=== PATIENT | female | born 1935 | race Caucasian/White ===

== ENCOUNTER 2018-12-23 13:03 | Inpatient (IN) ==
[2018-12-23] MEDS ORDERED: Chloraseptic Spray 177 ML BOTTLE MM PRN (18:34)
[2018-12-23] MEDS: *HR* HYDROcodone/Acet 5/325 mg TABLET PO PRN (22:36)
[2018-12-23] MEDS: Ipratropium/Albuterol Neb 3 ML IH SCH (22:37)
[2018-12-24] MEDS: Cefepime HCl 2,000 MG in Water for inj. (sterile) 20 ML IVP SCH ×2 (04:34→16:42)
[2018-12-24] MEDS: *HR* Enoxaparin 40 MG/0.4 ML SYRINGE SQ SCH (04:35)
[2018-12-24] MEDS: Ipratropium/Albuterol Neb 3 ML IH SCH ×4 (04:35→22:20)
[2018-12-24 05:17] LABS: Eosinophils % 0.3 %; Hematocrit 33.1 % (35.3-44.9); Immature Granulocytes % 0.5 % (0-4); Lymphocytes # 0.7 K/mcL (0.6-4.6); Lymphocytes % 6.8 %; Mean Corpuscular HGB Conc 30.2 g/dL (31.6-35.5); Mean Corpuscular Hemoglobin 25.1 pg (28.0-33.3); Mean Platelet Volume 10.7 fL (9.4-12.4); Monocytes # 0.8 K/mcL (0.0-1.3); Monocytes % 8.6 %; Platelet Count 263 K/mcL (140-400); Red Blood Count 3.99 M/mcL (3.82-4.97); Red Cell Distribution Width 17.2 % (11.5-14.5); Segmented Neutrophils % 83.8 %; White Blood Count 9.6 K/mcL (4.3-11.1)
[2018-12-24] MEDS: *HR* HYDROcodone/Acet 5/325 mg TABLET PO PRN ×3 (05:40→18:33)
[2018-12-24 05:43] LABS: BUN/Creatinine Ratio 25 (6-26); Blood Urea Nitrogen 20 mg/dL (8-23); Calcium 7.5 mg/dL (8.6-10.3); Carbon Dioxide 41 mEq/L (23-29); Chloride 94 mEq/L (98-107); Glucose 110 mg/dL (70-105); Osmolality,Calculated 291 (280-300); Potassium 3.2 mEq/L (3.5-5.1); Sodium 139 mEq/L (136-145); eGFR For African Americans > 60 (> 60); eGFR For Non-African Americans > 60 (> 60)
[2018-12-24] MEDS ORDERED: Vancomycin 750 MG VIAL IVPB SCH (09:00)
[2018-12-24] MEDS: Furosemide 20 MG TABLET PO SCH (09:10)
[2018-12-24] MEDS: Cyanocobalamin (B-12) 1,000 MCG TABLET PO SCH (09:10)
[2018-12-24] MEDS: Cholecalciferol (D-3) 1,000 UNIT (25MCG) TABLET PO SCH (09:11)
[2018-12-24] MEDS: predniSONE 10 MG TABLET PO SCH (09:11)
--- NOTE | 2018-12-24 13:15 | Internal Med History&Physical ---
Date of Encounter: 12/24/18 Time of Encounter: 13:13 Assessment and Plan (1) Ileitis, terminal Current visit: Yes Status: Acute She has an intramural abscess. surgical intervention was not warranted she was followed by surgery. She is supposed to remain on the IV antibiotics. We will continue the cefepime and vancomycin Qualifiers: Digestive disease complication type: with abscess Qualified Code(s): K50.014 - Crohn's disease of small intestine with abscess (2) History of vertebral compression fracture Current visit: Yes Status: Acute She is on hydrocodone from home this is a chronic medication for her will not make any changes to that unless something changes. (3) Vitamin B12 deficiency Current visit: Yes Status: Acute Will continue her home B12 (4) Vitamin D deficiency Current visit: Yes Status: Acute Will continue her home vitamin D (5) COPD (chronic obstructive pulmonary disease) Current visit: No Status: Acute She was retaining CO2 at [place]. They did try her on BiPAP she did not tolerate it. She refuses to wear. We will continue nebs and oxygen as needed. Qualifiers: COPD type: unspecified COPD Qualified Code(s): J44.9 - Chronic obstructive pulmonary disease, unspecified (6) Crohns disease Current visit: Yes Status: Chronic Qualifiers: Gastrointestinal tract location: small intestine Digestive disease complication type: with abscess Qualified Code(s): K50.014 - Crohn's disease of small intestine with abscess (7) DVT prophylaxis Current visit: Yes Status: Acute Lovenox (8) Small bowel obstruction Current visit: Yes Status: Acute She has small bowel obstruction on the CT that appears to resolved. (9) Physical deconditioning Current visit: Yes Status: Acute She is here for PT OT RT. (10) DNR (do not resuscitate) Current visit: Yes Status: Acute Discussed CODE STATUS she states she does not want intubation she does not want CPR. States that she is 83 years old she is alert and oriented and I believe capable of making this decision Internal Medicine - H&P: HPI Chief complaint: Here for rehabilitation Admitted From: Hospital to Hospital Transfer History of present illness: Ms. Cantor is a 83 year old female Who came from the main campus with ileitis small bowel obstruction intramural t erminal ileum abscess, history of Crohn's disease, COPD with CO2 retention. She had a lot of physical deconditioning with this abscess and bowel obstruction she is here for repeat have and IV antibiotics. She had a PICC line placed at the main campus she was sent here on vancomycin and cefepime for that abscess. 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 She is pretty independent. At the [facility] she self surgery she did not need surgical intervention. Her small bowel obstruction resolved resolved with bowel rest. She states she is feeling better. She does not have any abdominal pain she ate an omelette sausage and months of breakfast including hot chocolate but today it did stay down she did not have any pain with that she did have loose stool this morning she says loose stool is not uncommon for her she denies melena or hematochezia she denies emesis or nausea. She got up got to the nurses station it did make her short of breath she was tired after she did it. Her oxygen saturation did get a little low when she ambulated. She s tates she does not tolerate the BiPAP she said it was like a tornado blowing in her face she cannot wear she will not tolerate it. She was never on oxygen until she came in for this admission. She does not feel dizzy. She states that when she was at [place] they changed her pain medication and she was hallucinating she was seeing people bowl making pizzas in the street her television was on the floor. She states that has resolved since they switched her back to her usual hydrocodone. She is awake and alert and oriented 3. She knows who I am more I used to live she is pretty with it now. Past Med Surg Social Fam HX - Past Medical History Source: patient Medical history: arthritis, COPD, osteoporosis Additional medical history: Crohns, vertebral compression fractures, vitamin B12 deficiency, vitamin D deficiency, osteoporosis history of abnormal Pap smear hiatal hernia Psychiatric history: no psych history - Past Surgical History Surgical History: appendectomy (1989), CECILIA/BSO (For cervical cancer 1994), other (Tonsils colonoscopy EGD in September [address] Staley) - Social History Smoking Status: Former smoker Smokeless Tobacco Status: No Alcohol use: none Drug use: none - Family History Mother Living Status: Hx Family Cardiac Disorders: Yes (Hypertension) Hx Family Endocrine Disorder: Yes (Diabetes) Hx Family Neurologic Disorders: Yes (CVA) Father Hx Family Cardiac Disorders: Yes (Heart disease) Hx Family Endocrine Disorder: Yes (Diabetes) Internal Medicine - H&P: Meds Albuterol Sulfate [Proventil Inhaler] 2 puff IH Q4HR PRN 01/05/15 [History] Cholecalciferol (Vitamin D3) [Vitamin D3] 2,000 unit PO DAILY 01/05/15 [History] Cyanocobalamin (Vitamin B-12) [Vitamin B12] 1,000 mcg PO DAILY 12/16/18 [History] Furosemide [Lasix] 20 mg PO DAILY 12/16/18 [History] Omeprazole [PriLOSEC] 40 mg PO DAILY 12/16/18 [History] Cefepime HCl [Maxipime] 2,000 mg IVPB Q12HR 28 Days #56 vial 12/23/18 [Rx] Chloraseptic Bruce [Chloraseptic] 2 spray MM QID PRN bottle 12/23/18 [Rx] HYDROcodone/Acet 5/325 mg [Conception 5-325 mg] 1 tab PO Q6H PRN 3 Days #12 tab 12/23/18 [Rx] Ipratropium/Albuterol Neb [Duoneb] 3 ml IH [id number] inhsol 12/23/18 [Rx] Vancomycin [Vancocin] 750 mg IV DAILY #28 vial 12/23/18 [Rx] predniSONE [Prednisone] 10 mg PO DAILY 20 Days #50 tab 12/23/18 [Rx] Allergy/AdvReac Type Severity Reaction Status Date / Time latex Allergy Rash Verified 12/15/18 16:50 rofecoxib [From Vioxx] Allergy See Verified 12/15/18 16:50 Comments All Systems PM: A 10-system review of systems was performed and is negative for pertinent findings except as documented above in the HPI. - Constitutional Constitutional: fatigue, weakness (Generalized not focal), no fever(s), no night sweats - EENT Eyes: no change in vision Nose, mouth and throat: no nasal congestion, no nasal discharge - Cardiovascular Cardiovascular ROS IM: dyspnea, edema (She has had that has gotten a lot better), no chest pain, no orthopnea, no palpitations, no syncope - Respiratory Respiratory: no cough, no hemoptysis, no wheezing - Gastrointestinal Gastrointestinal: loose stools (Chronic), no abdominal pain, no constipation, no cramping, no dysphagia, no melena, no nausea, no vomiting - Genitourinary Genitourinary: no dysuria, no hematuria, no urinary incontinence - Musculoskeletal Musculoskeletal ROS IM: arthralgias (Chronic of her back) - Integumentary Integumentary IM: no pruritus, no rash, no jaundice - Neurological Neurological ROS: no dizziness, no loss of vision, no memory loss, no numbness - Constitutional Vitals: Temp Pulse Resp BP Pulse Ox 97.9 F 91 15 158/68 97 12/24/18 11:56 12/24/18 11:56 12/24/18 11:56 12/24/18 11:56 12/24/18 11:56 General appearance: Present: A&O X 3, no acute distress, answers questions appropriately - Head Head exam: Present: atraumatic, normocephalic - Neck Neck exam general surgery: Present: normal inspection, supple, trachea midline. Absent: lymphadenopathy - Respiratory Respiratory exam: Present: CTAB - Cardiovascular Cardiovascular exam: Present: +S1, +S2. Absent: systolic murmur - GI/Abdominal GI/Abdominal exam: Present: normal bowel sounds, soft, no peritoneal signs. Absent: distended, guarding, mass, tenderness - Extremities Exam Extremities exam: Present: normal capillary refill, pedal edema (Trace of ankle she states this is improved a lot) - Skin Skin exam: Present: dry, warm. Absent: rash Internal Med - H&P Results - Labs CBC & Chem 7: 12/24/18 04:44 12/24/18 04:44 Labs: Short CBC 12/24/18 Range/Units 04:44 WBC 9.6 D (4.3-11.1) K/mcL Hgb 10.0 L (11.5-15.4) g/dL Hct 33.1 L (35.3-44.9) % Plt Count 263 (140-400) K/mcL Neutrophils # 8.0 (1.6-8.9) K/mcL BMP 12/24/18 04:44 Sodium 139 Potassium 3.2 L Chloride 94 L Carbon Dioxide 41 H* BUN 20 Creatinine 0.80 Glucose 110 H Calcium 7.5 L
[2018-12-25] MEDS: *HR* HYDROcodone/Acet 5/325 mg TABLET PO PRN ×4 (00:45→19:06)
[2018-12-25] MEDS: Ipratropium/Albuterol Neb 3 ML IH SCH ×4 (04:17→22:07)
[2018-12-25] MEDS: Cefepime HCl 2,000 MG in Water for inj. (sterile) 20 ML IVP SCH (05:35)
[2018-12-25] MEDS: *HR* Enoxaparin 40 MG/0.4 ML SYRINGE SQ SCH (05:35)
[2018-12-25 05:59] LABS: Basophils % 0.1 %; Eosinophils # 0.3 K/mcL (0.0-0.6); Eosinophils % 3.3 %; Hematocrit 36.6 % (35.3-44.9); Hemoglobin 10.7 g/dL (11.5-15.4); Immature Granulocytes % 0.6 % (0-4); Lymphocytes # 1.3 K/mcL (0.6-4.6); Lymphocytes % 12.4 %; Mean Corpuscular HGB Conc 29.2 g/dL (31.6-35.5); Mean Corpuscular Hemoglobin 24.4 pg (28.0-33.3); Mean Corpuscular Volume 83.6 fL (83.0-100.0); Mean Platelet Volume 10.2 fL (9.4-12.4); Monocytes # 0.9 K/mcL (0.0-1.3); Monocytes % 8.7 %; Neutrophils # 7.6 K/mcL (1.6-8.9); Platelet Count 291 K/mcL (140-400); Red Blood Count 4.38 M/mcL (3.82-4.97); Red Cell Distribution Width 17.7 % (11.5-14.5); Segmented Neutrophils % 74.9 %; White Blood Count 10.1 K/mcL (4.3-11.1)
[2018-12-25 06:15] LABS: BUN/Creatinine Ratio 29 (6-26); Blood Urea Nitrogen 23 mg/dL (8-23); Calcium 7.5 mg/dL (8.6-10.3); Carbon Dioxide 36 mEq/L (23-29); Chloride 96 mEq/L (98-107); Glucose 103 mg/dL (70-105); Osmolality,Calculated 290 (280-300); Potassium 3.5 mEq/L (3.5-5.1); Sodium 138 mEq/L (136-145); eGFR For African Americans > 60 (> 60); eGFR For Non-African Americans > 60 (> 60)
[2018-12-25] MEDS: Cholecalciferol (D-3) 1,000 UNIT (25MCG) TABLET PO SCH (09:08)
[2018-12-25] MEDS: Cyanocobalamin (B-12) 1,000 MCG TABLET PO SCH (09:09)
[2018-12-25] MEDS: Furosemide 20 MG TABLET PO SCH (09:09)
[2018-12-25] MEDS: predniSONE 10 MG TABLET PO SCH (09:09)
--- NOTE | 2018-12-25 10:02 | Internal Med Progress Note ---
Date of Encounter: 12/25/18 Time of Encounter: 10:00 - Assessment and plan (1) Physical deconditioning Current Visit: Yes Status: Acute Assessment and plan: She is here for PT OT to improve physical strength to get her back home (2) Ileitis, terminal Current Visit: Yes Status: Acute Assessment and plan: She is here for IV cefepime and vancomycin. She is not having any abdominal pain. She has a PICC line for her antibiotics. Qualifiers: Digestive disease complication type: with abscess Qualified Code(s): K50.014 - Crohn's disease of small intestine with abscess (3) History of vertebral compression fracture Current Visit: Yes Status: Acute Assessment and plan: Continue her home dose of hydrocodone as needed (4) Vitamin B12 deficiency Current Visit: Yes Status: Acute Assessment and plan: Continue her home B12 (5) Vitamin D deficiency Current Visit: Yes Status: Acute Assessment and plan: Continue her home dose of medication (6) COPD (chronic obstructive pulmonary disease) Current Visit: No Status: Acute Assessment and plan: She did not tolerate BiPAP she is on oxygen she was on oxygen prior she is doing okay from respiratory standpoint Qualifiers: COPD type: unspecified COPD Qualified Code(s): J44.9 - Chronic obstructive pulmonary disease, unspecified (7) Crohns disease Current Visit: Yes Status: Chronic Qualifiers: Gastrointestinal tract location: small intestine Digestive disease complication type: with abscess Qualified Code(s): K50.014 - Crohn's disease of small intestine with abscess (8) DVT prophylaxis Current Visit: Yes Status: Acute Assessment and plan: Lovenox (9) Small bowel obstruction Current Visit: Yes Status: Acute Assessment and plan: That improved with bowel rest she did not require surgical intervention she does have an NG tube and bowel rest. She is not currently having any symptoms (10) DNR (do not resuscitate) Current Visit: Yes Status: Acute - Subjective Interval history: feels better she denies any abdominal pain she is eating okay she is off oxygen right now and they are checking her oxygen saturation she denies coughing wheezing shortness of breath palpitations chest pain dysuria. She does have loose stools that is nothing new for her no melena no hematochezia - Constitutional Vitals: Temp Pulse Resp BP Pulse Ox 97.4 F L 103 16 131/67 95 12/25/18 07:53 12/25/18 07:53 12/25/18 07:53 12/25/18 07:53 12/25/18 07:53 General appearance: Present: A&O X 3, no acute distress, answers questions appropriately - Head Head exam: Present: atraumatic, normocephalic - Neck Neck exam general surgery: Present: normal inspection, supple, trachea midline - Expanded Neck Exam Neck exam: Absent: carotid bruit - Respiratory Respiratory exam: Present: decreased breath sounds, prolonged expiratory phase, wheezes (occ) - Cardiovascular Cardiovascular exam: Present: RRR, +S1, +S2. Absent: systolic murmur - GI/Abdominal GI/Abdominal exam: Present: normal bowel sounds, no peritoneal signs. Absent: distended, guarding, soft, tenderness - Extremities Exam Extremities exam: Present: normal capillary refill, pedal edema (trace) - Skin Skin exam: Present: dry, rash, warm Internal Medicine: Result - Labs CBC & Chem 7: 12/25/18 05:37 12/25/18 05:37 Labs: Short CBC 12/25/18 Range/Units 05:37 WBC 10.1 (4.3-11.1) K/mcL Hgb 10.7 L (11.5-15.4) g/dL Hct 36.6 (35.3-44.9) % Plt Count 291 (140-400) K/mcL Neutrophils # 7.6 (1.6-8.9) K/mcL BMP 12/25/18 05:37 Sodium 138 Potassium 3.5 Chloride 96 L Carbon Dioxide 36 H BUN 23 Creatinine 0.79 Glucose 103 Calcium 7.5 L Consult Discharge Plan - Plan Referrals: Tay Argueta MD [Primary Care Provider] -
[2018-12-26] MEDS: *HR* HYDROcodone/Acet 5/325 mg TABLET PO PRN ×4 (01:38→21:09)
[2018-12-26] MEDS: Cefepime HCl 2,000 MG in Water for inj. (sterile) 20 ML IVP SCH (05:45)
[2018-12-26] MEDS: *HR* Enoxaparin 40 MG/0.4 ML SYRINGE SQ SCH (05:46)
[2018-12-26] MEDS: Ipratropium/Albuterol Neb 3 ML IH SCH ×4 (06:00→22:47)
[2018-12-26] MEDS ORDERED: Aminoglycoside Consult 1 EACH MC ONE (07:17)
[2018-12-26] MEDS: Cyanocobalamin (B-12) 1,000 MCG TABLET PO SCH (08:01)
[2018-12-26] MEDS: Furosemide 20 MG TABLET PO SCH (08:02)
[2018-12-26] MEDS: Cholecalciferol (D-3) 1,000 UNIT (25MCG) TABLET PO SCH (08:02)
[2018-12-26] MEDS: predniSONE 10 MG TABLET PO SCH (08:02)
--- NOTE | 2018-12-26 10:32 | Internal Med Progress Note ---
Date of Encounter: 12/26/18 Time of Encounter: 10:30 - Assessment and plan (1) Physical deconditioning Current Visit: Yes Status: Acute Assessment and plan: Patient complains of weakness but is doing well in OT and PT. Continued with OT and PT to improved physical strength. (2) Ileitis, terminal Current Visit: Yes Status: Acute Assessment and plan: Patient is doing well on antibiotic treatment. No abdomen pain. Continue with IV vancomyin and cefepime. Qualifiers: Digestive disease complication type: with abscess Qualified Code(s): K50.014 - Crohn's disease of small intestine with abscess (3) COPD (chronic obstructive pulmonary disease) Current Visit: No Status: Acute Assessment and plan: Continued oxygen supplementation. Qualifiers: COPD type: unspecified COPD Qualified Code(s): J44.9 - Chronic obstructive pulmonary disease, unspecified (4) History of vertebral compression fracture Current Visit: Yes Status: Acute Assessment and plan: Continue with home dose of hydrocodone. (5) Vitamin B12 deficiency Current Visit: Yes Status: Acute Assessment and plan: Continued with home dose of Vitamin B12 supplement. (6) Vitamin D deficiency Current Visit: Yes Status: Acute Assessment and plan: Continued home dose of vitamin D supplement. (7) DVT prophylaxis Current Visit: Yes Status: Acute Assessment and plan: Continued on lovenox for DVT prophylaxis. (8) Crohns disease Current Visit: Yes Status: Chronic Qualifiers: Gastrointestinal tract location: small intestine Digestive disease complication type: with abscess Qualified Code(s): K50.014 - Crohn's disease of small intestine with abscess (9) Small bowel obstruction Current Visit: Yes Status: Acute Assessment and plan: Patient improved with bowel rest. Eating well with not abdomen complains. (10) DNR (do not resuscitate) Current Visit: Yes Status: Acute - Subjective Interval history: Patient states she is feeling better and eating well. Denies any abdomen pain, coughing, wheezing, palpations, chest pain or shortness of breath. She admits to weakness and loose stool. Loose stool is normal for her due to Crohns. Patient denies hematochezia or melena. - Constitutional Vitals: Temp Pulse Resp BP Pulse Ox 97.7 F 97 14 143/72 93 12/26/18 07:00 12/26/18 07:00 12/26/18 07:00 12/26/18 07:00 12/26/18 07:00 General appearance: Present: A&O X 3, no acute distress, answers questions appropriately - Head Head exam: Present: atraumatic - Respiratory Respiratory exam: Present: accessory muscle use, decreased breath sounds - Cardiovascular Cardiovascular exam: Present: RRR, +S1, +S2 - GI/Abdominal GI/Abdominal exam: Present: normal bowel sounds. Absent: guarding, tenderness - Extremities Exam Extremities exam: Present: pedal edema Internal Medicine: Result - Labs CBC & Chem 7: 12/25/18 05:37 12/25/18 05:37 Consult Discharge Plan - Plan Referrals: Tay Argueta MD [Primary Care Provider] -
[2018-12-26] MEDS: MetroNIDAZOLE 500 MG/100 ML 500 MG/100 ML BAG IVPB SCH (18:07)
[2018-12-27] MEDS: MetroNIDAZOLE 500 MG/100 ML 500 MG/100 ML BAG IVPB SCH ×3 (02:39→17:56)
[2018-12-27] MEDS: *HR* HYDROcodone/Acet 5/325 mg TABLET PO PRN ×4 (03:57→22:32)
[2018-12-27] MEDS: Ipratropium/Albuterol Neb 3 ML IH SCH ×4 (05:10→21:31)
[2018-12-27] MEDS: Cefepime HCl 2,000 MG in Water for inj. (sterile) 20 ML IVP SCH (06:33)
[2018-12-27] MEDS: *HR* Enoxaparin 40 MG/0.4 ML SYRINGE SQ SCH (06:33)
--- NOTE | 2018-12-27 07:04 | Internal Med Progress Note ---
Date of Encounter: 12/27/18 Time of Encounter: 07:04 - Assessment and plan (1) Intestinal abscess Current Visit: Yes Status: Acute Assessment and plan: Clinically patient is doing well from her terminal ileum abscess. No fever, no abdominal pain. Eating well. Bowels are moving as her usual loose stools. No leukocytosis. Adjustment of antibiotics based on pharmacy recommendation and consultation with infectious disease (2) COPD (chronic obstructive pulmonary disease) Current Visit: No Status: Acute Assessment and plan: COPD appears be stable. She does not want awakened in the middle of night for nebulizer treatment. I think we can make it 4 times a day. Has inhaler for when necessary use. Qualifiers: COPD type: unspecified COPD Qualified Code(s): J44.9 - Chronic obstructive pulmonary disease, unspecified (3) Crohns disease Current Visit: Yes Status: Chronic Assessment and plan: Symptoms are stable. Chronic loose stools. No abdominal pain. No bleeding. Qualifiers: Gastrointestinal tract location: small intestine Digestive disease complication type: with abscess Qualified Code(s): K50.014 - Crohn's disease of small intestine with abscess (4) Acute respiratory failure with hypoxia Current Visit: No Status: Acute Assessment and plan: Generally using 1 L per nasal cannula. She does not tolerate BiPAP. She appears at her pulmonary baseline with functionality regarding breathing (5) Physical deconditioning Current Visit: Yes Status: Acute Assessment and plan: Continues with PT and OT for deconditioning after been hospitalized. Doing very well. (6) DVT prophylaxis Current Visit: Yes Status: Acute Assessment and plan: Continues with Lovenox for DVT prophylaxis. - Subjective Interval history: Patient's biggest complaint is that she wants regular [employer] instead of Elinor and she would like to have salt for her meals. She denies any cardiac type chest pain. She gets occasionally short of breath. She recalls being able to walk to and from physical therapy without having to stop. Nurses report she is requiring oxygen to keep her sats were dropping to the 70s and 80s during exertional activity. Her appetite is good. Her bowels are loose but this is typical for her with her history of Crohn's disease. She denies any abdominal pain except for where she gets the Lovenox injections. She is eating well. She states the edema in lower extremities much better this morning compared to last night. - Constitutional Vitals: Temp Pulse Resp BP Pulse Ox 97.9 F 91 12 130/60 95 12/26/18 20:58 12/26/18 20:58 12/27/18 05:12 12/26/18 20:58 12/27/18 05:12 General appearance: Present: A&O X 3, no acute distress, answers questions appro priately - Respiratory Respiratory exam: Present: decreased breath sounds, CTAB - Cardiovascular Cardiovascular exam: Present: RRR, +S1, +S2, systolic murmur (1 to 2/6 systolic murmur. Occasional ectopic beat) - GI/Abdominal GI/Abdominal exam: Present: soft, tenderness (Her only tenderness is at the sites of the Lovenox when she has small bruises). Absent: guarding, rigid - Extremities Exam Additional comments: Mild edema of both feet and ankles, nonpitting. Not impressive Internal Medicine: Result - Labs CBC & Chem 7: 12/25/18 05:37 12/25/18 05:37 Consult Discharge Plan - Plan Referrals: Tay Argueta MD [Primary Care Provider] -
[2018-12-27] MEDS ORDERED: Ipratropium/Albuterol Neb 3 ML IH PRN (08:42)
[2018-12-27] MEDS: Cyanocobalamin (B-12) 1,000 MCG TABLET PO SCH (09:11)
[2018-12-27] MEDS: predniSONE 10 MG TABLET PO SCH (09:11)
[2018-12-27] MEDS: Furosemide 20 MG TABLET PO SCH (09:11)
[2018-12-27] MEDS: Cholecalciferol (D-3) 1,000 UNIT (25MCG) TABLET PO SCH (09:11)
[2018-12-28] MEDS: MetroNIDAZOLE 500 MG/100 ML 500 MG/100 ML BAG IVPB SCH ×4 (00:29→23:26)
[2018-12-28] MEDS: Cefepime HCl 2,000 MG in Water for inj. (sterile) 20 ML IVP SCH ×2 (04:44→17:23)
[2018-12-28] MEDS: *HR* HYDROcodone/Acet 5/325 mg TABLET PO PRN ×4 (04:44→23:57)
[2018-12-28] MEDS: *HR* Enoxaparin 40 MG/0.4 ML SYRINGE SQ SCH (04:45)
[2018-12-28] MEDS: Ipratropium/Albuterol Neb 3 ML IH SCH ×4 (06:08→21:14)
--- NOTE | 2018-12-28 07:19 | Internal Med Progress Note ---
Date of Encounter: 12/28/18 Time of Encounter: 07:17 - Assessment and plan (1) Intestinal abscess Current Visit: Yes Status: Acute Assessment and plan: continues with the antibiotics intravenously. No fever or chills or abdominal pain. (2) COPD (chronic obstructive pulmonary disease) Current Visit: No Status: Acute Assessment and plan: She desats when she is up and around. Able to maintain good saturations with minimal oxygen per nasal cannula. In bed rest her saturations are in the mid 90s. Currently on low-dose prednisone per thermoforming machine operator at [place]. We will plan taper. Qualifiers: COPD type: unspecified COPD Qualified Code(s): J44.9 - Chronic obstructive pulmonary disease, unspecified (3) Crohns disease Current Visit: Yes Status: Chronic Assessment and plan: No abdominal pain. Her chronic loose stools continue Qualifiers: Gastrointestinal tract location: small intestine Digestive disease complication type: with abscess Qualified Code(s): K50.014 - Crohn's disease of small intestine with abscess (4) Acute respiratory failure with hypoxia Current Visit: No Status: Acute Assessment and plan: Patient declines/refuses BiPAP. Does not tolerate it. Her CO2 has been coming down. (5) Physical deconditioning Current Visit: Yes Status: Acute Assessment and plan: Doing well with her therapies. Continue PT and OT. (6) DVT prophylaxis Current Visit: Yes Status: Acute Assessment and plan: Continues with Lovenox. - Subjective Interval history: Patient states that she is feeling well. She denies any cardiac chest pain or palpitations, she denies any significant dyspnea despite her saturations dropping to the low 80s when she goes to and from the bathroom when she is on room air. She denies any abdominal pain. Her appetite is good. Her bowel movements are her typical loose stools chronically. Still has some edema in lower extremities. Only complaint is pain from her Lovenox shots - Constitutional Vitals: Temp Pulse Resp BP Pulse Ox 97.8 F 105 16 118/81 91 12/28/18 06:55 12/28/18 06:55 12/28/18 06:55 12/28/18 06:55 12/28/18 06:55 General appearance: Present: A&O X 3, no acute distress, answers questions appropriately - Respiratory Respiratory exam: Present: decreased breath sounds, CTAB - Cardiovascular Cardiovascular exam: Present: RRR, +S1, +S2 Additional comments: Frequent ectopy is noted. No tachycardia. - GI/Abdominal GI/Abdominal exam: Present: soft, no peritoneal signs. Absent: guarding, hepatomegaly, mass, tenderness - Extremities Exam Extremities exam: Present: pedal edema (Small amount of ankle and pedal edema. No redness or tenderness). Absent: calf tenderness Internal Medicine: Result - Labs CBC & Chem 7: 12/25/18 05:37 12/25/18 05:37 Consult Discharge Plan - Plan Referrals: Tay Argueta MD [Primary Care Provider] -
[2018-12-28] MEDS: Cholecalciferol (D-3) 1,000 UNIT (25MCG) TABLET PO SCH (07:53)
[2018-12-28] MEDS: predniSONE 10 MG TABLET PO SCH (07:53)
[2018-12-28] MEDS: Furosemide 20 MG TABLET PO SCH (07:53)
[2018-12-28] MEDS: Cyanocobalamin (B-12) 1,000 MCG TABLET PO SCH (07:54)
[2018-12-29] MEDS: Ipratropium/Albuterol Neb 3 ML IH SCH ×3 (05:42→16:43)
[2018-12-29] MEDS: *HR* Enoxaparin 40 MG/0.4 ML SYRINGE SQ SCH (05:42)
[2018-12-29] MEDS: Cefepime HCl 2,000 MG in Water for inj. (sterile) 20 ML IVP SCH ×2 (05:42→18:44)
[2018-12-29] MEDS: *HR* HYDROcodone/Acet 5/325 mg TABLET PO PRN ×3 (05:53→18:43)
[2018-12-29] MEDS: Cyanocobalamin (B-12) 1,000 MCG TABLET PO SCH (08:01)
[2018-12-29] MEDS: predniSONE 10 MG TABLET PO SCH (08:02)
[2018-12-29] MEDS: Cholecalciferol (D-3) 1,000 UNIT (25MCG) TABLET PO SCH (08:02)
[2018-12-29] MEDS: MetroNIDAZOLE 500 MG/100 ML 500 MG/100 ML BAG IVPB SCH ×2 (08:02→15:51)
[2018-12-29] MEDS: Furosemide 20 MG TABLET PO SCH (08:02)
--- NOTE | 2018-12-29 17:23 | Internal Med Progress Note ---
Date of Encounter: 12/29/18 Time of Encounter: 17:18 - Assessment and plan (1) Intestinal abscess Current Visit: Yes Status: Acute Assessment and plan: Patient has been treated for nearly 2 weeks with IV antibiotics of various ty pes. I had a conversation via email with Dr. Kendall today. He suggested 2 weeks IV antibiotic followed by 2-4 weeks of oral levofloxacin/Flagyl/Diflucan. He recommended a repeat CT scan of abdomen towards the end of the treatment, possibly at 4 weeks to see if abscess is still there. With no fever, no chills, no leukocytosis now, no abdominal pain, eating well etc. clinically she is doing well. Even though she has not been on the current regimen for 2 weeks, she has had at least double antibiotics for 2 weeks as of tomorrow. I discussed with patient and her nephew that if the lab work and clinical exam is good tomorrow, we will plan discharge and at least 2 weeks of oral antibiotics and then repeat the CT scan. I can arrange close follow-up via the office. (2) COPD (chronic obstructive pulmonary disease) Current Visit: No Status: Acute Assessment and plan: Her pulmonary status is stable. She requires oxygen when she exerts herself. We will make arrangements for home oxygen. Qualifiers: COPD type: unspecified COPD Qualified Code(s): J44.9 - Chronic obstructive pulmonary disease, unspecified (3) Crohns disease Current Visit: Yes Status: Chronic Assessment and plan: Abdomen has been stable. Loose stools a couple of times per day which is chronic. Qualifiers: Gastrointestinal tract location: small intestine Digestive disease complication type: with abscess Qualified Code(s): K50.014 - Crohn's disease of small intestine with abscess (4) Acute respiratory failure with hypoxia Current Visit: No Status: Acute (5) Physical deconditioning Current Visit: Yes Status: Acute Assessment and plan: Physical therapy reports that she is doing well and that she may be ready for discharge tomorrow (6) DVT prophylaxis Current Visit: Yes Status: Acute - Subjective Interval history: Patient thinks that she is doing well. She does admit that her oxygen level does drop to the 80s when she goes to the bathroom. When in bed sometime she can be a room air and her sats are in the mid 90s. She denies a cardiac type chest pain. She does not think her breathing is any different from her baseline. She is eating well. She has had 2 loose bowel movements today which is typical for her. No urinary symptoms. No fevers or chills. No abdominal pain. - Constitutional Vitals: Temp Pulse Resp BP Pulse Ox 97.3 F L 99 18 130/67 95 12/29/18 05:58 12/29/18 08:00 12/29/18 16:44 12/29/18 08:00 12/29/18 16:44 General appearance: Present: A&O X 3, no acute distress, answers questions a ppropriately - Respiratory Respiratory exam: Present: decreased breath sounds, CTAB - Cardiovascular Cardiovascular exam: Present: RRR, +S1, +S2, systolic murmur (2/6 systolic murmur. Occasional ectopic beat, occasionally bigeminy pattern) - GI/Abdominal GI/Abdominal exam: Present: soft, no peritoneal signs. Absent: distended, guarding, mass, rebound, rigid, tenderness - Extremities Exam Additional comments: Mild amount of edema of ankles and feet. No skin breakdown. Internal Medicine: Result - Labs CBC & Chem 7: 12/25/18 05:37 12/25/18 05:37 Consult Discharge Plan - Plan Referrals: Tay Argueta MD [Primary Care Provider] -
[2018-12-30] MEDS: Ipratropium/Albuterol Neb 3 ML IH SCH ×3 (01:35→09:49)
[2018-12-30] MEDS: MetroNIDAZOLE 500 MG/100 ML 500 MG/100 ML BAG IVPB SCH ×2 (01:41→09:24)
[2018-12-30] MEDS: *HR* HYDROcodone/Acet 5/325 mg TABLET PO PRN ×2 (01:53→08:28)
[2018-12-30] MEDS: Cefepime HCl 2,000 MG in Water for inj. (sterile) 20 ML IVP SCH (05:25)
[2018-12-30] MEDS: *HR* Enoxaparin 40 MG/0.4 ML SYRINGE SQ SCH (05:28)
[2018-12-30 05:34] LABS: Basophils % 0.6 %; Eosinophils # 0.4 K/mcL (0.0-0.6); Eosinophils % 5.4 %; Hematocrit 33.2 % (35.3-44.9); Hemoglobin 9.6 g/dL (11.5-15.4); Immature Granulocytes % 1.7 % (0-4); Mean Corpuscular HGB Conc 28.9 g/dL (31.6-35.5); Mean Corpuscular Hemoglobin 24.4 pg (28.0-33.3); Mean Corpuscular Volume 84.5 fL (83.0-100.0); Mean Platelet Volume 9.8 fL (9.4-12.4); Monocytes # 0.9 K/mcL (0.0-1.3); Neutrophils # 4.7 K/mcL (1.6-8.9); Platelet Count 312 K/mcL (140-400); Red Blood Count 3.93 M/mcL (3.82-4.97); Segmented Neutrophils % 65.3 %; White Blood Count 7.2 K/mcL (4.3-11.1)
[2018-12-30 05:47] LABS: Platelet Estimate Normal (Normal)
[2018-12-30 05:54] LABS: BUN/Creatinine Ratio 31 (6-26); Blood Urea Nitrogen 24 mg/dL (8-23); Calcium 7.6 mg/dL (8.6-10.3); Carbon Dioxide 33 mEq/L (23-29); Chloride 103 mEq/L (98-107); Glucose 114 mg/dL (70-105); Osmolality,Calculated 295 (280-300); Potassium 3.4 mEq/L (3.5-5.1); Sodium 140 mEq/L (136-145); eGFR For African Americans > 60 (> 60); eGFR For Non-African Americans > 60 (> 60)
--- NOTE | 2018-12-30 07:33 | Discharge Summary ---
- NOTES TO OUTPATIENT PROVIDER Notes to Outpatient Provider: 1. Patient discharged on Levaquin, metronidazole, Diflucan for 2 weeks and then follow-up CT scan at that time to recheck bowel abscess. 2. Discharged with nebulizer and treatments. 3. Discharged with potassium supplement. 4. Discharged with oxygen use to keep her sats greater than 90% Date of Encounter: 12/30/18 Time of Encounter: 07:17 - Discharge Diagnosis (1) Intestinal abscess Priority: Primary Status: Acute Comments: Patient was transferred to our hospital in a swing bed capacity for ongoing IV antibiotics and for physical therapy for deconditioning. She was at [facility] previously and was treated for an intramural intestinal infection. She came to us on vancomycin and cefepime. After consultation with pharmacy and infectious disease specialist it was changed to cefepime and metronidazole. Her abdomen exam remained soft and nontender and no masses. White blood cell count was normal. She did extremely well with from a GI point of view taking regular diet, stooling at her usual loose stools with Crohn's disease, and no abdominal pain. As recommended by infectious disease to complete 2 weeks of IV advice then switch to oral with Levaquin, metronidazole and Diflucan. We will plan follow-up in the office as well as follow up CT scan at the four-week jumana. She will notify me if develops abdominal pain, fever, chills, vomiting etc. (2) COPD (chronic obstructive pulmonary disease) Priority: Secondary Status: Acute Comments: Patient's chronic COPD and now is found to have hypoxia when she is up and ambulating. Saturations would drop to the mid to low 80s. Basically when out of bed and ambulate and she needed oxygen. Otherwise she advanced nicely with her ADLs. She appears be safe to be sent home. PT and OT feel that she is at maximum benefit in our facility. She will be discharged on oxygen per nasal cannula at 1-2 L per nasal cannula concentrator and portable tank. I will see her in the office in follow-up. Qualifiers: COPD type: unspecified COPD Qualified Code(s): J44.9 - Chronic obstructive pulmonary disease, unspecified (3) Crohns disease Priority: Secondary Status: Chronic Comments: Chronic history of Crohn's disease. Followed by Dr. Staley in [facility]. She had the abscess as above. Her abdomen seems to be back to normal and being discharged with the advice as discussed above. Qualifiers: Gastrointestinal tract location: small intestine Digestive disease complication type: with abscess Qualified Code(s): K50.014 - Crohn's disease of small intestine with abscess (4) Acute respiratory failure with hypoxia Priority: Secondary Status: Acute Comments: As above with acute exacerbation of her hypoxia. Requiring oxygen now (5) Physical deconditioning Priority: Secondary Status: Acute Comments: She advanced nicely with PT and OT and maintain ADLs appropriately well to be able to go home. (6) Hypokalemia Priority: Secondary Status: Acute Comments: Hypokalemia resolved. (7) DVT prophylaxis Priority: Secondary Status: Acute Comments: Patient had Lovenox for DVT prophylaxis. Hospital course: Ms. Cantor is a 83 year old female with known history of Crohn's disease was admitted to [facility] then transferred to us with history of intramural intestinal abscess. See the diagnoses above. Time of discharge she was doing quite well safe for discharge. Discharge discussed with: patient - Time Spent with Patient Total time spent providing and/or coordinating discharge services: - Discharge Medications Prescriptions: New Fluconazole [Diflucan] 400 mg PO DAILY #28 tab Ferrous Sulfate [Iron] 325 mg PO BID #1 tablet Potassium Chloride [K-Tab ER] 10 meq PO DAILY #30 tablet.er levoFLOXacin [Levofloxacin] 500 mg PO DAILY #14 tablet metroNIDAZOLE [Metronidazole] 500 mg PO TID 14 Days #42 tablet HYDROcodone/Acet 5/325 mg [[place] 5-325 mg] 1 tab PO Q6H PRN 30 Days #120 tablet PRN Reason: Pain Continued Omeprazole [PriLOSEC] 40 mg PO DAILY Furosemide [Lasix] 20 mg PO DAILY Cyanocobalamin (Vitamin B-12) [Vitamin B12] 1,000 mcg PO DAILY Cholecalciferol (Vitamin D3) [Vitamin D3] 2,000 unit PO DAILY Albuterol Sulfate [Proventil Inhaler] 2 puff IH Q4HR PRN PRN Reason: Shortness Of Breath Ipratropium/Albuterol Neb [Duoneb] 3 ml IH [id number] #120 inhsol Discontinued Chloraseptic Early [Chloraseptic] 2 spray MM QID PRN bottle PRN Reason: Sore Throat Cefepime HCl [Maxipime] 2,000 mg IVPB Q12HR 28 Days #56 vial predniSONE [Prednisone] 10 mg PO DAILY 20 Days #50 tab Vancomycin [Vancocin] 750 mg IV DAILY #28 vial HYDROcodone/Acet 5/325 mg [[place] 5-325 mg] 1 tab PO Q6H PRN 3 Days #12 tab PRN Reason: Pain Home Medications: Albuterol Sulfate [Proventil Inhaler] 2 puff IH Q4HR PRN 01/05/15 [History] Cholecalciferol (Vitamin D3) [Vitamin D3] 2,000 unit PO DAILY 01/05/15 [History] Cyanocobalamin (Vitamin B-12) [Vitamin B12] 1,000 mcg PO DAILY 12/16/18 [History] Furosemide [Lasix] 20 mg PO DAILY 12/16/18 [History] Omeprazole [PriLOSEC] 40 mg PO DAILY 12/16/18 [History] Ferrous Sulfate [Iron] 325 mg PO BID #1 tablet 12/30/18 [Rx] Fluconazole [Diflucan] 400 mg PO DAILY #28 tab 12/30/18 [Rx] HYDROcodone/Acet 5/325 mg [[place] 5-325 mg] 1 tab PO Q6H PRN 30 Days #120 tablet 12/30/18 [Rx] Ipratropium/Albuterol Neb [Duoneb] 3 ml IH [id number] #120 inhsol 12/30/18 [Rx] Potassium Chloride [K-Tab ER] 10 meq PO DAILY #30 tablet.er 12/30/18 [Rx] levoFLOXacin [Levofloxacin] 500 mg PO DAILY #14 tablet 12/30/18 [Rx] metroNIDAZOLE [Metronidazole] 500 mg PO TID 14 Days #42 tablet 12/30/18 [Rx] Allergies/Adverse Reactions: Allergy/AdvReac Type Severity Reaction Status Date / Time latex Allergy Rash Verified 12/15/18 16:50 rofecoxib [From Vioxx] Allergy See Verified 12/15/18 16:50 Comments Date of admission: 12/23/18 16:58 Primary care physician: Tay Argueta MD Consults: 12/23/18 18:12 Consult to Occupational Therapy [CONS] Routine Comment: Evaluate, develop and implement POC Reason for Consult: eval Does patient have active BEDREST order?: No Is patient medically & hemodynamically stable?: Yes Consult to Physical Therapy [CONS] Routine Comment: Evaluate, develop and implement POC Reason for Consult: eval Does patient have active BEDREST order?: No Is patient medically & hemodynamically stable?: Yes Consult to Recreational Therapy [CONS] Routine Comment: eval Discharging clinician: Tay Argueta Anticipated date of discharge: 12/30/18 - Constitutional Vitals: Temp Pulse Resp BP Pulse Ox 97.7 F 96 16 126/60 97 12/29/18 19:00 12/29/18 19:00 12/29/18 19:00 12/29/18 19:00 12/29/18 19:00 General appearance: Present: A&O X 3, no acute distress, answers questions appropriately - Respiratory Respiratory exam: Present: decreased breath sounds, CTAB - Cardiovascular Cardiovascular exam: Present: RRR, +S1, +S2, systolic murmur (1/6 systolic murmur. Occasional ectopy and occasional bigeminy pattern) - GI/Abdominal GI/Abdominal exam: Present: soft. Absent: tenderness - Extremities Exam Extremities exam: Absent: calf tenderness, cyanotic Additional comments: Mild edema of ankles and feet. No tenderness. No redness. - Patient Status Disposition: Home, Self-Care Functional capacity at discharge: independent ambulation Overall status at discharge: patient is progressing back to baseline - Discharge Instructions Follow Up With: Tay Argueta MD [Primary Care Provider] - 01/04/19 8:15 am Additional Instructions: Remove PICC line dressing tomorrow 12/31/18 @ 2pm. Finish entire course of antibiotics. Attend scheduled followup appointments. Use oxygen as directed. Take medications as prescribed. Discuss flu shot with Dr. Argueta at scheduled appointment. Follow-up appointments: If there is not an appointment listed below, please call your physician and schedule a follow-up appointment. If you have congestive heart failure and your symptoms return, make an appointment with your physician. Medication List: Carry an up to date list of medications you are taking at all time. We have given you an updated medication list including any new medications that you have been prescribed. Please provide that list to your primary provider Symptoms: If your condition changes or you experience any of the following symptoms, notify your physician immediately: Unusual or worsening pain, fever, persistent nausea and vomiting, bleeding, increase in swelling (especially in your legs), sudden weight gain, extreme dizziness, chest pain, increased drainage or redness from a wound or incision. Go to the emergency department if you experience a problem with breathing. Weights: If you have a history of swelling or shortness of breath, weigh yourself daily and notify your physician if you have a weight gain of two or more pounds in one day or 5 or more pounds in a week. If you experience any of the warning signs for stroke: Sudden numbness or weakness of the face, arm or leg; especially on one side of the body, sudden confusion, trouble speaking or understanding, sudden trouble seeing in one or both eyes, sudden trouble walking, dizziness, loss of balance or coordination, sudden sever headache with no cause; Call 911 or go to the emergency room. Stroke is a medical emergency. Some risk factors for stroke: Age, cigarette smoking, diabetes, excessive alcohol consumption, family history, high blood pressure, overweight, physical inactivity, prior stroke, heart attack, diagnosis of carotid artery stenosis or other artery disease. If you smoke, STOP: Smoking or tobacco use significantly increases your risk of heart and lung disease. Your chance of disease greatly increases if you continue to smoke. For more information, call the [place] tobacco quit line for smoking cessation 3-597-KGRU-NOW ( ) - Diet and Activity Activity: increase activity as tolerated, other (use oxygen when needed to keep saturations in the 90s)
[2018-12-30 07:56] VITALS: BP 152/76
[2018-12-30] MEDS: Cholecalciferol (D-3) 1,000 UNIT (25MCG) TABLET PO SCH (08:28)
[2018-12-30] MEDS: Furosemide 20 MG TABLET PO SCH (08:29)
[2018-12-30] MEDS: predniSONE 10 MG TABLET PO SCH (08:29)
[2018-12-30] MEDS: Cyanocobalamin (B-12) 1,000 MCG TABLET PO SCH (08:29)
== END 2018-12-30 14:36 | disposition home or self-care (01) | DRG 385 ==
LOC: INPGRE 16:58
PROVIDERS: ADMIT Family Medicine; ATTEND Family Medicine

== ENCOUNTER 2019-03-24 09:31 | Inpatient (IN) ==
[2019-03-24] MEDS: *HR* HYDROcodone/Acet 5/325 mg TABLET PO PRN ×2 (14:59→21:07)
[2019-03-24] MEDS: Cholecalciferol (D-3) 1,000 UNIT (25MCG) TABLET PO SCH (21:07)
[2019-03-24] MEDS: Budesonide/Formoterol 160/4.5 1 PUFF INH IH SCH (21:09)
[2019-03-24] MEDS: Ipratropium/Albuterol Neb 3 ML IH SCH (21:10)
[2019-03-25] MEDS: *HR* HYDROcodone/Acet 5/325 mg TABLET PO PRN ×4 (02:49→22:23)
[2019-03-25] MEDS: *HR* Enoxaparin 40 MG/0.4 ML SYRINGE SQ SCH (06:12)
[2019-03-25] MEDS: Cholecalciferol (D-3) 1,000 UNIT (25MCG) TABLET PO SCH ×2 (08:27→20:55)
[2019-03-25] MEDS: predniSONE 20 MG TABLET PO SCH (08:28)
[2019-03-25] MEDS: Cyanocobalamin (B-12) 1,000 MCG TABLET PO SCH (08:28)
[2019-03-25] MEDS: Lactobacillus 1 EACH CAP.SPRINK PO SCH (08:29)
[2019-03-25] MEDS: Ipratropium/Albuterol Neb 3 ML IH SCH ×2 (11:34→22:16)
[2019-03-25] MEDS: Budesonide/Formoterol 160/4.5 1 PUFF INH IH SCH ×2 (11:35→22:17)
[2019-03-26] MEDS ORDERED: Acetaminophen 325 MG TABLET PO PRN (01:18)
[2019-03-26] MEDS: *HR* Enoxaparin 40 MG/0.4 ML SYRINGE SQ SCH (05:04)
[2019-03-26] MEDS: *HR* HYDROcodone/Acet 5/325 mg TABLET PO PRN ×4 (05:05→21:55)
[2019-03-26] MEDS: Lactobacillus 1 EACH CAP.SPRINK PO SCH (08:14)
[2019-03-26] MEDS: predniSONE 20 MG TABLET PO SCH (08:14)
[2019-03-26] MEDS: Cyanocobalamin (B-12) 1,000 MCG TABLET PO SCH (08:15)
[2019-03-26] MEDS: Cholecalciferol (D-3) 1,000 UNIT (25MCG) TABLET PO SCH ×2 (08:16→21:54)
[2019-03-26] MEDS: Trolamine Salicylate/Aloe Vera 85 APPL/85 GM TUBE TP PRN (10:48)
[2019-03-26] MEDS: Ipratropium/Albuterol Neb 3 ML IH SCH ×2 (11:41→21:53)
[2019-03-26] MEDS: Budesonide/Formoterol 160/4.5 1 PUFF INH IH SCH ×2 (11:44→21:53)
[2019-03-27] MEDS: *HR* Enoxaparin 40 MG/0.4 ML SYRINGE SQ SCH (04:05)
[2019-03-27] MEDS: *HR* HYDROcodone/Acet 5/325 mg TABLET PO PRN ×4 (04:05→22:07)
[2019-03-27 08:38] LABS: BUN/Creatinine Ratio 33 (6-26); Blood Urea Nitrogen 25 mg/dL (8-23); Calcium 8.6 mg/dL (8.6-10.3); Carbon Dioxide 34 mEq/L (23-29); Chloride 99 mEq/L (98-107); Glucose 75 mg/dL (70-105); Osmolality,Calculated 291 (280-300); Potassium 4.1 mEq/L (3.5-5.1); Sodium 139 mEq/L (136-145); eGFR For African Americans > 60 (> 60); eGFR For Non-African Americans > 60 (> 60)
[2019-03-27] MEDS: Lactobacillus 1 EACH CAP.SPRINK PO SCH (08:39)
[2019-03-27] MEDS: predniSONE 20 MG TABLET PO SCH (08:39)
[2019-03-27] MEDS: Cholecalciferol (D-3) 1,000 UNIT (25MCG) TABLET PO SCH ×2 (08:39→21:25)
[2019-03-27] MEDS: Cyanocobalamin (B-12) 1,000 MCG TABLET PO SCH (08:45)
[2019-03-27] MEDS ORDERED: Furosemide 40 MG/4 ML VIAL IVP ONE (08:47)
[2019-03-27] MEDS ORDERED: Furosemide 40 MG TABLET PO ONE (10:10)
[2019-03-27] MEDS ORDERED: Furosemide 40 MG in 0.9 % Sodium Chloride 50 ML IV ONE (12:00)
[2019-03-27] MEDS: Budesonide/Formoterol 160/4.5 1 PUFF INH IH SCH ×2 (12:02→21:25)
[2019-03-27] MEDS: Ipratropium/Albuterol Neb 3 ML IH SCH ×2 (12:02→21:26)
[2019-03-27] MEDS: Trolamine Salicylate/Aloe Vera 85 APPL/85 GM TUBE TP PRN (21:27)
[2019-03-28] MEDS: *HR* HYDROcodone/Acet 5/325 mg TABLET PO PRN ×2 (04:31→10:33)
[2019-03-28] MEDS: *HR* Enoxaparin 40 MG/0.4 ML SYRINGE SQ SCH (04:31)
[2019-03-28 06:00] LABS: Basophils % 0.2 %; Eosinophils # 0.1 K/mcL (0.0-0.6); Eosinophils % 0.4 %; Hematocrit 27.2 % (35.3-44.9); Hemoglobin 8.6 g/dL (11.5-15.4); Lymphocytes # 0.9 K/mcL (0.6-4.6); Lymphocytes % 5.6 %; Mean Corpuscular HGB Conc 31.6 g/dL (31.6-35.5); Mean Corpuscular Hemoglobin 28.7 pg (28.0-33.3); Mean Corpuscular Volume 90.7 fL (83.0-100.0); Mean Platelet Volume 10.5 fL (9.4-12.4); Monocytes # 1.1 K/mcL (0.0-1.3); Monocytes % 6.8 %; Neutrophils # 13.9 K/mcL (1.6-8.9); Platelet Count 357 K/mcL (140-400); Red Cell Distribution Width 18.4 % (11.5-14.5); White Blood Count 16.5 K/mcL (4.3-11.1)
[2019-03-28 06:12] LABS: BUN/Creatinine Ratio 32 (6-26); Blood Urea Nitrogen 24 mg/dL (8-23); Calcium 8.2 mg/dL (8.6-10.3); Carbon Dioxide 33 mEq/L (23-29); Chloride 98 mEq/L (98-107); Glucose 83 mg/dL (70-105); Osmolality,Calculated 289 (280-300); Potassium 3.7 mEq/L (3.5-5.1); Sodium 138 mEq/L (136-145); eGFR For African Americans > 60 (> 60); eGFR For Non-African Americans > 60 (> 60)
[2019-03-28] MEDS: Ipratropium/Albuterol Neb 3 ML IH SCH (08:49)
[2019-03-28] MEDS: Budesonide/Formoterol 160/4.5 1 PUFF INH IH SCH (08:50)
[2019-03-28 09:10] VITALS: BP 137/82
[2019-03-28] MEDS: Lactobacillus 1 EACH CAP.SPRINK PO SCH (09:10)
[2019-03-28] MEDS: Cyanocobalamin (B-12) 1,000 MCG TABLET PO SCH (09:10)
[2019-03-28] MEDS: Cholecalciferol (D-3) 1,000 UNIT (25MCG) TABLET PO SCH (09:11)
[2019-03-28] MEDS: predniSONE 20 MG TABLET PO SCH (09:11)
[2019-03-28] MEDS ORDERED: Furosemide 40 MG TABLET PO ONE (10:10)
== END 2019-03-28 14:40 | disposition home or self-care (01) | DRG 949 ==
LOC: INPGRE 12:49
PROVIDERS: ADMIT Family Medicine; ATTEND Family Medicine